=== PATIENT | female | born 1950 | race Caucasian/White ===

== ENCOUNTER 2016-11-25 09:19 | Emergency (ER) | payer OTHER ==
[~2016-11-25] VITALS: Ht 170.2 cm; Wt 79.1 kg
[2016-11-25 09:19] VITALS: BP 119/102; PULSE 125; RESP 24; O2SAT 97
[~2016-11-25 09:19] MED LIST: ATOR40TA69 PO; CITA40TA13 PO; GABA600T2 PO
[2016-11-25] MEDS ORDERED: MethylprednisoLONE Sodium Succinate 62.5 mg/mL 2 mL Inj IVPUSH ONE (09:25)
[2016-11-25] MEDS ORDERED: Albuterol-Ipratropium 3 mL Inhalation Solution NEB ONE (09:25)
[2016-11-25] MEDS ORDERED: Albuterol 2.5 mg/3 mL Inhalation Solution NEB ONE (09:25)
[2016-11-25] MEDS ORDERED: Ondansetron 2 mg/mL 2 mL Inj ONE (09:29)
--- NOTE | 2016-11-25 09:32 | ED.REPORT ---
HPI-Altered Mental Status Date of Service Nov 25, 2016 ED Provider: Champ Mondragon MD The pt is a 66 y/o female with hx of DM, chronic back pain with narcotic dependance, COPD (on home O2 at night), and HTN who is brought to the ED via EMS due to altered mental status around 0830 this morning. Per the EMS, her found her sitting in her chair unresponsive after he noticed she was acting abnormally during a conversation a few minutes prior. Her O2 saturation was at around 30% upon EMS arrival and it is suspected she was hypoxic for 20 minutes. Pupils were noticeably different in size. The pt was given 2mg Narcan and subsequently became more responsive with O2 sats in the 90's with nasal cannula. Per the pt, she has been using Oxycodone for "a long time." She is amnestic to the event and her only complaint is SOB. She denies having suicidal thoughts, self-harm thoughts, or abuse of Oxycodone due to depression. EMS gave her 4 mg Zofran en route. Upon reviewing records it appears the pt had a similar presentation in June 2015. She takes Oxycodone and Methadone for her chronic back pain. Nursing Notes Stated Complaint: HYPOXIC Nursing Notes Reviewed: Yes ([employer], meds not reconciled (patient does not know meds)) Allergies: Coded Allergies: naproxen (Verified Allergy, Severe, Rash, Itch, 04/12/15) penicillin (Verified Adverse Reaction, Severe, DIARRHEA, 04/12/15) Scheduled Atorvastatin Calcium (Atorvastatin Calcium) 40 Mg Tablet 40 MG PO DAILY Citalopram (Citalopram) 40 Mg Tablet 40 MG PO DAILY Prednisone (PredniSONE) 20 Mg Tablet 60 MG PO DAILY Scheduled PRN Albuterol HFA (Proair HFA) 8.5 Gm Hfa.aer.ad 2 PUFFS INHALATION Q4H PRN PRN For Shortness of Breath Gabapentin (Gabapentin) 600 Mg Tablet 600 MG PO QID PRN PRN For Pain General Time Seen by MD: 09:19 Chief Complaint Decreased responsiveness Hx Obtained From: Patient, Spouse, EMS Arrived By: Ambulance Sudden in Onset?: Yes Onset Occurred: Just prior to arrival Symptom Duration: 16 - 30 minutes Progression since Onset: Unchanged Severity: Current: No pain currently Severity: Maximum: No pain Additional Notes: SOB Pertinent Negative: Pt denies other symptoms Related History: Reports Diabetes mellitus Recent Healthcare: No recent hospitalization, Recent doctor visit Similar Sx Previous: Yes Risk Factors )( IC Bleed Risk Strat RF Statements: Risk factors reviewed )( SAH Risk Stratification Hypertension RF Statements: Risk factors reviewed Past Medical History Past Medical History Notes: Last admit 06/2015 for respiratory failure and aspiration after accidental opiate OD (Intubated, transfered to [facility] at family request) Past Medical History Chronic back pain with narcotic dependence DJD Chronic smoker's cough History of diverticulitis complicated by colovaginal fistula, status post open takedown with low anterior resection and left colostomy in October 2014 Obesity depression anxiety Difficult intubation seizures Adrenal mass Reports: COPD, Diabetes mellitus, GERD, Hyperlipidemia, Hypertension Reports: Diverticulitis Past Surgical History Colon resection Colostomy pacemaker Reports: Hip replacement (Bilateral LUIS's) Smoking History Current Every Day Smoker, Heavy Tobacco Smoker Social History Alcohol Use: Denies alcohol use Drug Use: Denies drug use, Other Ambulatory Status Independent Review of Systems Respiratory: Reports: Shortness of breath Psychiatric: Reports: Change mental status, Denies: Depression, Suicidal ideation Complete sys rev & neg: except as marked. Physical Exam Initial Vital Signs Vital Signs (First) Date Time Temp Pulse Resp B/P Pulse Ox O2 Delivery O2 Flow Rate FiO2 11/25/16 09:19 36.0 125 24 119/102 97 Room Air 11/25/16 10:13 2 Initial VS: Reviewed, Vital signs abnormal (O2 sat in 30's(!) for EMS on initial arrival) General/Constitutional: Awake Appearance / Presentation: Positive: Obese Restless Mild agitation but redirectable by voice Pupils: Positive: Dilated L, Dilated R Neck: Atraumatic Respiratory / Chest: Atraumatic Persistent hacking cough Scattered wheezing and rhonchi Tachypneic but not dyspneic Cardiovascular: Heart sounds NL Heart Rate / Rhythm: Positive: Tachycardia Trace edema at ankles Neurologic: Speech NL Mental Status: Positive: Confused Could not recall date, recent events, or name medications Recalled her and name Slightly confused but interacts normally Abdomen: Atraumatic offset with colostomy Skin: Atraumatic mild diaphoresis Upper Extremity / MS: Atraumatic, Neurologic intact, Vascular intact Lower Extremity / Pelvis / MS: Atraumatic, Neurologic intact, Vascular intact Interpretation & Diagnostics Lab Results Interpretation Result Diagram: 11/25/1692911/25/16929 Test 11/25/16 09:30 11/25/16 11:10 White Blood Count 16.9th/mm3 (3.8-10.1) Red Blood Count 4.91mil/mm3 (3.90-5.20) Hemoglobin 14.7g/dL (12.0-15.6) Hematocrit 46.7% (35.0-46.0) Mean Corpuscular Volume 95.1fL (81-100) Mean Corpuscular Hemoglobin 29.9pg (27.0-35.0) Mean Corpuscular Hemoglobin Concent 31.5% (32.0-37.0) Red Cell Distribution Width 14.3% (12.3-15.4) Platelet Count 272bil/L (150-400) Neutrophils (%) (Auto) 49.5% (40-74) Lymphocytes (%) (Auto) 37.6% (14-46) Monocytes (%) (Auto) 10.0% (4-12) Eosinophils (%) (Auto) 2.1% (0-5) Basophils (%) (Auto) 0.2% (0-3) Prothrombin Time 9.8sec (8.1-12.5) Prothromb Time International Ratio 0.92ratio Sodium Level 140mEq/L (134-144) Potassium Level 4.6mEq/L (3.5-5.2) Chloride Level 98mEq/L (97-108) Carbon Dioxide Level 28mmol/L (18-29) Blood Urea Nitrogen 15mg/dL (8-27) Creatinine 0.76mg/dL (0.57-1.00) Estimat Glomerular Filtration Rate 109mL/min (>59) Glucose Level 301mg/dL (60-99) Calcium Level 9.3mg/dL (8.5-10.1) Magnesium Level 2.0mg/dL (1.6-2.6) Total Bilirubin 0.2mg/dL (0.0-1.2) Aspartate Amino Transf (AST/SGOT) 15U/L (0-50) Alanine Aminotransferase (ALT/SGPT) 15U/L (0-32) Alkaline Phosphatase 84U/L (25-165) Troponin T 0.010ug/L (0.0-0.011) Pro-B-Type Natriuretic Peptide 41.27pg/mL (0-301) Total Protein 7.3g/dL (6.4-8.4) Albumin 4.3g/dL (3.4-5.0) Alcohols < 10mg/dL (0-10) Lactic Acid Level 2.6mmol/L (0.4-2.0) Lab Results Interpretation: CBC moderate leukocytosis - likely stress-induced CMP mild hyperglycemia Lactic acid elevated, improving on repeat Sample Type: Venous pH - 7.302 pCO2 - 56 pO2 - 65.5 cHCO3 - 27.8 ECG Interpretation ECG Interpretation: sinus tachycardia with rate of 115 no abnormalities Time: 09:52 Interpreted by: ED physician X-Ray Chest Interpretation Chest Xray Interpretation: IMPRESSION: Relatively large lung volumes, COPD would be suspected, minimal scarring right lung base, no acute disease, no aspiration found. Dictated by: Sree Ty M.D. on 11/25/2016 at 10:00 Approved by: Sree Ty M.D. on 11/25/2016 at 10:01 View: Portable, 1 view Interpretation / Wet Read by: Interpret - Radiologist Re-Eval/Medical Decision Med Decision/Clinical Course This is a 66-year-old female found unconscious and unresponsive by the contacted medics. The medics found the patient profoundly hypoxic with O2 sat of 30% and were supportive treatment with [id number] oxygenation and getting set up to intubate the patient when they tried an empiric dose of Narcan , at which point the patient probably woke up. Initially there is support the patient's [id number] turns at the patient's likely on methadone as well as additional oxycodone, and it turns out she had chronic back pain, and took "some extra". Ex report is about 20 minutes of resuscitating the patient, was concerned about the possibility of aspiration, and the patient still confused and restless and likely inhibitor withdrawal. Patient improved. She is restless and mild on arrival, but her mentation did rapidly improve and normalize. (She was initially confused, but this again normalized) she did have an initial marked cough, but even that improved. She had a few scattered wheezes and rhonchi, please resolved. Empiric steroids and nebs were given. Patient started consist that she was going home and felt better. She had a period of observation and did well. She passed a road test. I had a long conversation with her and her family regarding the concerns as this is not the first time the patient's had a significant overdose leading to arrest, and she wanted know how to avoid dis-and explained that she should not overdose or self administer her narcotics and take them only as prescribed is the only indication. Further cutting back may be warranted. The patient is not happy with this due to her chronic pain.' I have explained the patient is at risk for developing a formal aspiration, although none is evident on initial chest radiography. In importance of returning should she develop fever cough or worsening symptoms. In the meantime a course of steroids A think is reasonable, and a written refill for albuterol inhaler. She is discharged in improved condition. Source of Hx: Old records, EMS Re-Evaluation/Progress #1: Time of Eval: 10:00 )( Re-Eval Neurologic Exam: Alert Re-Evaluation/Progress Note: Pt informed of current situation. She reports feeling back pain due to Narcan reversing the effect of the oxycodone. Re-Evaluation/Progress #2: Time of Eval: 12:30 )( Re-Eval Neurologic Exam: Alert Re-Evaluation/Progress Note: Rechecked pt who has been insisting on going home. Family reports she is back to baseline. Discussed plan for d/c with f/u. Patient understands and agrees with plan. All questions addressed at this time. Differential Diagnosis: Positive: Hypoxemia, Negative: Carbon monoxide poisoning, Cerebrovascular accident, Diabetic ketoacidosis, Meningitis, Uremia Counseled Regarding: Diagnosis, Lab results, Need for follow-up, When/why to return to ED Patient Discharge & Departure Departure Notes r/o aspiration Impression: Primary Impression: Opiate or related narcotic overdose Encounter type: initial encounter Injury intent: accidental or unintentional Qualified Code: T40.601A - Poisoning by unspecified narcotics, accidental (unintentional), initial encounter Additional Impressions: Respiratory arrest COPD with acute exacerbation Disposition: Home Discharge Condition All VS Reviewed: Yes Condition: Stable Additional Instructions: 1. You had too much opiates in your systems today, and had stopped breathing. When the paramedics arrived your oxygen saturation was only 30%, he required bag valve ventilation and resuscitative support, until the naloxone returned your respiratory drive. 2. This is extremely dangerous. Take your medications only as prescribed, do not take extra. You do need to follow-up with her regular prescriber. I understand you have back pain, however please understand you have almost overdosed, and stopped breathing now several times in recent months. You came close to suffering brain injury and/or today. 3. You are at risk for developing an aspiration injury over the next several days. A definite aspiration was not seen on x-ray or laboratory today, but it can sometimes take several days for an aspiration pneumonitis to develop. We do not recommend antibiotics at this time, studies indicate they're not beneficial unless a fever or worsening symptoms develop. Return immediately if he developed worsening shortness of breath, fever, or concerning symptoms. 4. Use your oxygen for the next several days 5. Take prednisone 60 mg a day once a day for the next 4 days-next dose tomorrow. 6. Use your inhalers Referrals: Jase Rendon MD [facility] Except Billable Proc Time Spent: 30-74 minutes Services Performed: Patient management by me, Time spent at bedside, Reviewing test results, Reviewing imaging, Discussing patient care, Documentation in record, Time with fam/surrogate, Other Scribe Attestation Portions of this note were transcribed by Kevan Alves and Evelyn Caballero. I , Dr. Champ Mondragon personally performed the history, physical exam and medical decision-making; I reviewed and confirmed the accuracy of the information in the transcribed note. Signed by: Kevan Alves and Evelyn Caballero, Lisaibe, 11/25/16. copies to: Jase Rendon MD, Matthew F MD Nov 25, 2016 09:32 Kevan Alves Nov 25, 2016 10:06 EVELYN CABALLERO Nov 25, 2016 12:11
[2016-11-25] MEDS ORDERED: Ondansetron 2 mg/mL 2 mL Inj IVPUSH ONE (09:45)
[2016-11-25 09:54] VITALS: BP 144/67; PULSE 120; RESP 11; O2SAT 100
[2016-11-25 09:57] LABS: BASOPHILS % (AUTO) 0.2 % (0-3); EOSINOPHILS % (AUTO) 2.1 % (0-5); Mean Corpuscular Hemoglobin 29.9 pg (27.0-35.0); Mean Corpuscular Volume 95.1 fL (81-100); NEUTROPHILS % (AUTO) 49.5 % (40-74); Platelet Count 272 bil/L (150-400)
[2016-11-25 09:59] LABS: INR 0.92 ratio
--- NOTE | 2016-11-25 10:03 | DRSVH ---
PROCEDURE: X-RAY CHEST ONE VIEW, PORTABLE ([id number]) INDICATIONS: sOB ?aspiration TECHNIQUE: One view of the chest was acquired. COMPARISON: [facility], CR, XR CHEST 2VW, 04/23/2015, 3:32. [facility], CR, XR CHEST 1VW (PORTABLE), 07/12/2015, 14:04. [facility], CR, XR CHEST 1VW (PORTABLE), 07/11, 12:48. FINDINGS: Surgical changes and devices: Cardiac pacemaking device and dual chamber leads appear normal Lungs and pleura: No pleural effusions or pneumothorax. Lungs are clear except for mild chronic sca rring right lung base and large lung volumes are again noted suggestive of COPD. Mediastinum: Mediastinal contours appear normal. Heart size is normal. Bones and chest wall: No suspicious bony lesions. Overlying soft tissues appear unremarkable. IMPRESSION: Relatively large lung volumes, COPD would be suspected, minimal scarring right lung base, no acute disease, no aspiration found. Dictated by: Sree Ty M.D. on 11/25/2016 at 10:00 Approved by: Sree Ty M.D. on 11/25/2016 at 10:01
[2016-11-25 10:09] LABS: TROPONIN T 0.01 ug/L (0.0-0.011)
[2016-11-25 10:13] VITALS: PULSE 122; RESP 22; O2SAT 96
[2016-11-25 10:45] VITALS: BP 97/53; PULSE 121; RESP 20; O2SAT 89
[2016-11-25] MEDS ORDERED: 0.9% Sodium Chloride 500 ML IV ONE (11:00)
[2016-11-25 11:35] VITALS: BP 106/60; PULSE 101; RESP 19; O2SAT 89
[2016-11-25] MEDS ORDERED: PRE20 PO (12:33)
[2016-11-25] MEDS ORDERED: ALBU8.5H2 INHALATION (12:33)
[2016-11-25 12:48] VITALS: BP 104/60; PULSE 90; RESP 18; O2SAT 91
== END 2016-11-25 12:49 | disposition home or self-care (01) ==
LOC: SED 09:19
DX: T40.601A Poisoning by unspecified narcotics, accidental (unintentional), initial encounter (principal); J44.1 Chronic obstructive pulmonary disease with (acute) exacerbation; R09.2 Respiratory arrest; I10 Essential (primary) hypertension; E11.9 Type 2 diabetes mellitus without complications; K21.9 Gastro-esophageal reflux disease without esophagitis; E78.5 Hyperlipidemia, unspecified; F17.200 Nicotine dependence, unspecified, uncomplicated; Z95.0 Presence of cardiac pacemaker; Z88.0 Allergy status to penicillin; Z88.5 Allergy status to narcotic agent
CPT/HCPCS: 36415; 71010; 80053; 82803; 83605; 83735; 83880; 84484; 85025; 85610; 87040; 93005; 94664; 94799; 96374; 96375; 99285; G0480; J2405; J2930; J7040; J7613; J7620